=== PATIENT | female | born 1985 | race Caucasian/White ===

== ENCOUNTER 2016-09-25 21:57 | Emergency (ER) | payer MEDICAID ==
[~2016-09-25] VITALS: Ht 154.9 cm; Wt 93.0 kg
[2016-09-25] MEDS ORDERED: NACL 0.9% 1,000 ML IV SCH (22:03)
[2016-09-25] MEDS ORDERED: FAMOTIDINE 20 MG/2 ML VIAL IVP ONE (22:05)
[2016-09-25 22:07] VITALS: BP 110/80
--- NOTE | 2016-09-25 22:07 | NUR ---
Dr. Angel evaluating patient at triage.
--- NOTE | 2016-09-25 22:21 | NUR ---
PT TAKEN TO BED 4
--- NOTE | 2016-09-25 22:25 | NUR ---
30Y F BIB FAMILY, C/O AB PAIN AND CRAMPING WITH NO VAG BLEEDING SINCE 1600 TODAY. PT IS 18 WEEKS . PT STATES SHE HAD COFFEE TODAY AT [facility] WHILE VISITING HER DAD. CO STATES NO MED HX DENIES N/V/D; SKIN IS PINK/WARM/DRY; AAOX4 WITH EVEN AND STEADY GAIT; LUNGS CLEAR BL; HR EVEN AND REGULAR; PT DENIES ANY FEVER, CP, SOB, OR COUGH AT THIS TIME; PATIENT STATES PAIN OF 6/10 AT THIS TIME; VSS; PATIENT POSITIONED FOR COMFORT; HOB ELEVATED; BEDRAILS UP X2; BED DOWN. ER MD MADE AWARE OF PT STATUS.
[2016-09-25 23:30] VITALS: BP 108/77
[2016-12-25] MEDS ORDERED: PRENATAL LOW IR1 TA1 PO (15:21)
[2017-01-17] MEDS ORDERED: PRENATAL LOW IR1 TA1 PO (01:30)
== END 2016-09-25 23:30 | disposition home or self-care (01) ==
LOC: MED 22:03
PROC: 3E033GC Introduction of Other Therapeutic Substance into Peripheral Vein, Percutaneous Approach (ICD-10-PCS; principal; 2016-09-25)
DX: O26.892 Other specified pregnancy related conditions, second trimester (principal); K21.9 Gastro-esophageal reflux disease without esophagitis; Z3A.16 16 weeks gestation of pregnancy
CPT/HCPCS: 36415; 80053; 81001; 81025; 82150; 83690; 84702; 85025; 96361; 96374; 99284; J3490; J7030

== ENCOUNTER 2016-12-24 20:43 | Observation (INO) | payer MEDICAID ==
[~2016-12-24] VITALS: Ht 152.4 cm; Wt 97.5 kg
[2016-12-24 21:33] VITALS: BP 116/63
[2016-12-24 22:18] LABS: PARTIAL THROMBOPLASTIN TIME 26.5 secs (22-35.6); PROTHROMBIN TIME 9.9 secs (10.8-13.4)
[2016-12-24 22:20] LABS: BASOPHILS # (AUTO) 0.1 K/uL (0.00-0.22); EOSINOPHILS # (AUTO) 0.2 K/uL (0-0.4); EOSINOPHILS % (AUTO) 1.7 % (0.0-4.0); HEMATOCRIT 36.3 % (36-48); HEMOGLOBIN 12.3 g/dL (12.0-16.0); LYMPHOCYTES % (AUTO) 19.4 % (20.5-51.1); MEAN CORPUSCULAR HEMOGLOBIN 29 pg (27-31); MEAN CORPUSCULAR HGB CONC 34 g/dL (33-37); MEAN CORPUSCULAR VOLUME 86 fL (80-94); MONOCYTES # (AUTO) 0.5 K/uL (0.8-1.0); MONOCYTES % (AUTO) 4.9 % (1.7-9.3); NEUTROPHILS # (AUTO) 7.7 K/uL (1.8-7.7); PLATELET COUNT (AUTO) 181 K/uL (140-450); RED BLOOD CELL COUNT(AUTO) 4.21 MIL/uL (4.20-5.40); RED CELL DISTRIBUTION WIDTH 12.5 % (11.6-13.7); WHITE BLOOD COUNT (AUTO) 10.5 K/uL (4.8-10.8)
[2016-12-25] MEDS ORDERED: PREN-380 PO (15:21)
== END 2016-12-25 16:07 | disposition home or self-care (01) ==
LOC: MLD 20:43
PROVIDERS: ADMIT Obstetrics & Gynecology; ATTEND Obstetrics & Gynecology
DX: O26.899 Other specified pregnancy related conditions, unspecified trimester (principal); R10.2 Pelvic and perineal pain; Z3A.00 Weeks of gestation of pregnancy not specified
CPT/HCPCS: 36415; 59025; 76815; 85025; 85379; 85610; 85730; 86850; 86886; 86900; 86901; G0378; J2790; Q0092

== ENCOUNTER 2017-01-16 22:37 | Observation (INO) | payer MEDICAID ==
[~2017-01-16] VITALS: Ht 152.4 cm; Wt 98.4 kg
[2017-01-17] VITALS: BP 117/55
[2017-01-17] MEDS ORDERED: PREN-380 PO (01:30)
[2017-01-17] MEDS ORDERED: NALBUPHINE 10 MG/ML AMP IVP PRN (01:30)
[2017-01-17] MEDS ORDERED: LACTATED RINGERS 1,000 ML IV SCH (01:30)
[2017-01-17] MEDS ORDERED: TERBUTALINE 1 MG/ML VIAL SUBQ ONE (01:51)
[2017-01-17] MEDS: TERBUTALINE 1 MG/ML VIAL SUBQ SCH ×2 (04:49→04:50)
--- NOTE | 2017-01-17 09:04 | NUR ---
PATIENT HAS BEEN SCREENED AND CATEGORIZED LOW NUTRITION RISK. PATIENT WILL BE SEEN WITHIN 7 DAYS OF ADMISSION. 01/23/[address]
== END 2017-01-17 14:55 | disposition home or self-care (01) ==
LOC: MFCC 22:37 → MLD 22:37
PROVIDERS: ADMIT Obstetrics & Gynecology; ATTEND Obstetrics & Gynecology
DX: O62.9 Abnormality of forces of labor, unspecified (principal); Z3A.00 Weeks of gestation of pregnancy not specified
CPT/HCPCS: 76815; 96360; 96361; 96372; G0378; J3105; Q0092

== ENCOUNTER 2017-02-08 00:15 | Observation (INO) | payer MEDICAID ==
[~2017-02-08] VITALS: Ht 152.4 cm; Wt 99.8 kg
[~2017-02-08 00:15] MED LIST: PREN-380 PO
[2017-02-08] MEDS ORDERED: LACTATED RINGERS 1,000 ML IV SCH (01:20)
[2017-02-08] MEDS: TERBUTALINE 1 MG/ML VIAL SUBQ SCH ×2 (01:37→02:23)
[2017-02-08] MEDS ORDERED: TERBUTALINE 1 MG/ML VIAL SUBQ ONE (01:38)
[2017-02-08] MEDS ORDERED: TERBUTALINE 2.5 MG TAB PO SCH (04:00)
[2017-02-08 06:13] LABS: BASOPHILS % (AUTO) 0.4 % (0.0-2.0); EOSINOPHILS # (AUTO) 0.1 K/uL (0-0.4); EOSINOPHILS % (AUTO) 0.9 % (0.0-4.0); HEMATOCRIT 35.5 % (36-48); MEAN CORPUSCULAR HEMOGLOBIN 29 pg (27-31); MEAN CORPUSCULAR HGB CONC 34 g/dL (33-37); MEAN CORPUSCULAR VOLUME 86 fL (80-94); MONOCYTES # (AUTO) 0.6 K/uL (0.8-1.0); MONOCYTES % (AUTO) 5.7 % (1.7-9.3); NEUTROPHILS # (AUTO) 7.8 K/uL (1.8-7.7); PLATELET COUNT (AUTO) 175 K/uL (140-450); RED BLOOD CELL COUNT(AUTO) 4.13 MIL/uL (4.20-5.40); RED CELL DISTRIBUTION WIDTH 12.9 % (11.6-13.7); WHITE BLOOD COUNT (AUTO) 10.5 K/uL (4.8-10.8)
[2017-02-08 07:18] LABS: D-DIMER 1540 ng/ml (0-400)
[2017-02-08 07:34] LABS: INR 0.9 (0.8-1.2); PARTIAL THROMBOPLASTIN TIME 25.3 secs (22-35.6); PROTHROMBIN TIME 9.6 secs (10.8-13.4)
[2017-02-08 07:41] LABS: FIBRINOGEN > 475 mg/dL (200-400)
--- NOTE | 2017-02-08 09:18 | NUR ---
PATIENT HAS BEEN SCREENED AND CATEGORIZED LOW NUTRITION RISK. PATIENT WILL BE SEEN WITHIN 7 DAYS OF ADMISSION. 02/14/[address]
== END 2017-02-08 16:15 | disposition home or self-care (01) ==
LOC: MLD 00:15
PROVIDERS: ADMIT Obstetrics & Gynecology; ATTEND Obstetrics & Gynecology
DX: O62.9 Abnormality of forces of labor, unspecified (principal); Z3A.00 Weeks of gestation of pregnancy not specified
CPT/HCPCS: 36415; 76815; 85025; 85379; 85384; 85610; 85730; G0378; J3105; J7120; Q0092; 51702; 96372

== ENCOUNTER 2017-02-10 20:44 | Observation (INO) | payer MEDICAID ==
[~2017-02-10] VITALS: Ht 152.4 cm; Wt 99.8 kg
[2017-02-10] MEDS: LACTATED RINGERS 1,000 ML IV SCH (04:01)
[2017-02-11 03:30] VITALS: BP 127/60
--- NOTE | 2017-02-11 06:49 | NUR ---
PATIENT HAS BEEN SCREENED AND CATEGORIZED LOW NUTRITION RISK. PATIENT WILL BE SEEN WITHIN 7 DAYS OF ADMISSION. 02/17/16 JAMEE HAYDEN MS, RDN
[2017-02-11] MEDS: LACTATED RINGERS 1,000 ML IV SCH (08:34)
== END 2017-02-11 10:45 | disposition home or self-care (01) ==
LOC: MLD 20:44
PROVIDERS: ADMIT Obstetrics & Gynecology; ATTEND Obstetrics & Gynecology
DX: Z34.93 Encounter for supervision of normal pregnancy, unspecified, third trimester (principal); Z3A.38 38 weeks gestation of pregnancy
CPT/HCPCS: 76815; 96360; 96361; G0378; J7120; Q0092

== ENCOUNTER 2017-02-25 07:45 | Inpatient (IN) | payer MEDICAID ==
[~2017-02-25] VITALS: Ht 152.4 cm; Wt 95.3 kg
[2017-02-25 10:00] VITALS: BP 125/63
[2017-02-25 11:22] LABS: BASOPHILS # (AUTO) 0.1 K/uL (0.00-0.22); BASOPHILS % (AUTO) 1.5 % (0.0-2.0); EOSINOPHILS # (AUTO) 0.2 K/uL (0-0.4); EOSINOPHILS % (AUTO) 1.8 % (0.0-4.0); HEMATOCRIT 39.8 % (36-48); HEMOGLOBIN 13.3 g/dL (12.0-16.0); LYMPHOCYTES # (AUTO) 2.3 K/uL (2.5-16.5); LYMPHOCYTES % (AUTO) 26.5 % (20.5-51.1); MEAN CORPUSCULAR HEMOGLOBIN 29 pg (27-31); MEAN CORPUSCULAR HGB CONC 34 g/dL (33-37); MEAN CORPUSCULAR VOLUME 86 fL (80-94); MONOCYTES # (AUTO) 0.6 K/uL (0.8-1.0); MONOCYTES % (AUTO) 6.4 % (1.7-9.3); NEUTROPHILS # (AUTO) 5.6 K/uL (1.8-7.7); NEUTROPHILS % (AUTO) 63.8 % (42.2-75.2); PLATELET COUNT (AUTO) 165 K/uL (140-450); RED BLOOD CELL COUNT(AUTO) 4.65 MIL/uL (4.20-5.40); RED CELL DISTRIBUTION WIDTH 13.1 % (11.6-13.7); WHITE BLOOD COUNT (AUTO) 8.8 K/uL (4.8-10.8)
[2017-02-25 11:25] LABS: ANION GAP 15.1 (8-16); CARBON DIOXIDE 20.5 mmol/L (21-32); CREATININE 0.6 mg/dL (0.6-1.3); POTASSIUM 3.6 mmol/L (3.5-5.1)
[2017-02-25 11:28] LABS: INR 0.9 (0.8-1.2); PARTIAL THROMBOPLASTIN TIME 27.4 secs (22-35.6); PROTHROMBIN TIME 9.5 secs (10.8-13.4)
[2017-02-25 11:31] LABS: ALBUMIN 2.5 g/dL (3.4-5.0); TOTAL BILIRUBIN 0.3 mg/dL (0.0-1.0); TOTAL PROTEIN, SERUM 6.8 g/dL (6.4-8.2)
[2017-02-25 11:36] LABS: APPEARANCE,URINE CLEAR (CLEAR); BILIRUBIN,URINE NEGATIVE (NEGATIVE); BLOOD, URINE NEGATIVE (NEGATIVE); COLOR,URINE YELLOW (YELLOW); LEUKOCYTE ESTERASE ,URINE NEGATIVE (NEGATIVE); NITRITE, URINE NEGATIVE (NEGATIVE); PH,URINE 5.5 (5.0-9.0); PROTEIN,URINE NEGATIVE (NEGATIVE); UGLUCOSE NEGATIVE (NEGATIVE); UROBILINOGEN,URINE 0.2 EU/dL (0.2 - 1)
[2017-02-25 11:58] LABS: BACTERIA,URINE OCCASSIONAL /HPF (None Seen); MUCUS,URINE 1+ /LPF (None Seen); RBC,URINE NONE SEEN /HPF (0-5); SQUAMOUS EPITHELIAL CELL,UR 0-3 (FEW) /LPF (0-3 (FEW)); WBC,URINE 0-5 (RARE) /HPF (0-5)
[2017-02-25] MEDS ORDERED: LACTATED RINGERS 1,000 ML IV SCH (12:13)
[2017-02-25] MEDS ORDERED: CITRIC ACID/SODIUM CITRATE 30 ML UDC PO SCH (13:00)
[2017-02-25] MEDS ORDERED: CITRIC ACID/SODIUM CITRATE 30 ML UDC ONE (13:21)
[2017-02-25] MEDS ORDERED: diphenhydrAMINE 50 MG/ML VIAL IVP ONE (13:45)
[2017-02-25] MEDS ORDERED: BUPIVACAINE-MPF 0.75% 10 ML VIAL INJ ONE (13:45)
[2017-02-25] MEDS ORDERED: ePHEDrine 50 MG/ML VIAL IV ONE (13:45)
[2017-02-25] MEDS ORDERED: ONDANSETRON 4 MG/2 ML VIAL IVP ONE (13:45)
[2017-02-25] MEDS ORDERED: fentaNYL 0.05 MG/ML VIAL ONE (14:03)
[2017-02-25] MEDS ORDERED: MIDAZOLAM 2 MG/2 ML VIAL ONE (14:03)
[2017-02-25] MEDS ORDERED: KETAMINE 500 MG/5 ML VIAL ONE (14:03)
[2017-02-25] MEDS ORDERED: MORPHINE PRES FREE 10 MG/10 ML AMP IV ONE (14:04)
[2017-02-25] MEDS ORDERED: ceFAZolin 1,000 MG VIAL IVP ONE (14:10)
[2017-02-25] MEDS ORDERED: ONDANSETRON 4 MG/2 ML VIAL IVP PRN (14:35)
[2017-02-25] MEDS ORDERED: diphenhydrAMINE 50 MG/ML VIAL IVP PRN (14:35)
[2017-02-25] MEDS ORDERED: KETOROLAC 30 MG/ML VIAL IVP PRN ×2 (14:35→16:45)
[2017-02-25] MEDS ORDERED: diphenhydrAMINE 50 MG/ML VIAL ONE (15:31)
[2017-02-25] MEDS ORDERED: OXYTOCIN 20 UNITS/LR PREMIX 1,000 ML IV ONE (15:31)
[2017-02-25] MEDS ORDERED: HYDROmorphone 1 MG/ML AMP IVP PRN (16:45)
[2017-02-25] MEDS ORDERED: MEASLES, MUMPS, AND RUBELLA 1 VIAL SQVAC PRN (16:45)
[2017-02-26] MEDS: OXYTOCIN 20 UNITS/LR PREMIX 1,000 ML IV SCH ×2 (01:12→10:18)
[2017-02-26 06:34] LABS: BASOPHILS % (AUTO) 0.2 % (0.0-2.0); EOSINOPHILS # (AUTO) 0.2 K/uL (0-0.4); EOSINOPHILS % (AUTO) 1.6 % (0.0-4.0); HEMATOCRIT 34.3 % (36-48); HEMOGLOBIN 11.4 g/dL (12.0-16.0); LYMPHOCYTES # (AUTO) 1.4 K/uL (2.5-16.5); LYMPHOCYTES % (AUTO) 11.3 % (20.5-51.1); MEAN CORPUSCULAR HEMOGLOBIN 29 pg (27-31); MEAN CORPUSCULAR HGB CONC 33 g/dL (33-37); MEAN CORPUSCULAR VOLUME 86 fL (80-94); MONOCYTES # (AUTO) 0.6 K/uL (0.8-1.0); MONOCYTES % (AUTO) 4.6 % (1.7-9.3); NEUTROPHILS # (AUTO) 9.8 K/uL (1.8-7.7); NEUTROPHILS % (AUTO) 82.3 % (42.2-75.2); PLATELET COUNT (AUTO) 146 K/uL (140-450); RED BLOOD CELL COUNT(AUTO) 3.98 MIL/uL (4.20-5.40); RED CELL DISTRIBUTION WIDTH 13.2 % (11.6-13.7)
--- NOTE | 2017-02-26 09:49 | NUR ---
PATIENT HAS BEEN SCREENED AND CATEGORIZED LOW NUTRITION RISK. PATIENT WILL BE SEEN WITHIN 7 DAYS OF ADMISSION. 03/03/[address]
[2017-02-26] MEDS ORDERED: oxyCODONE/APAP 5/325 MG 1 TAB TAB PO PRN (17:20)
[2017-02-26] MEDS: ACETAMINOPHEN 325 MG TAB PO PRN (17:40)
[2017-02-26] MEDS ORDERED: NALBUPHINE 10 MG/ML AMP IM PRN (18:20)
[2017-02-27] MEDS: ACETAMINOPHEN 325 MG TAB PO PRN (02:14)
[2017-02-27] MEDS ORDERED: BISACODYL 5 MG TABEC PO PRN (08:00)
[2017-02-27] MEDS ORDERED: SODIUM PHOSPHATE 118 ML ENEM RC PRN (08:00)
[2017-02-27] MEDS ORDERED: DOCUSATE SODIUM 100 MG GELCAP PO PRN (08:00)
[2017-02-27] MEDS: oxyCODONE/APAP 5/325 MG 1 TAB TAB PO PRN ×2 (08:26→12:19)
[2017-02-27] MEDS: SIMETHICONE 80 MG TAB.CHEW PO PRN (12:18)
[2017-02-27] MEDS: IBUPROFEN 800 MG TAB PO PRN ×2 (15:52→23:39)
[2017-02-28] MEDS: SIMETHICONE 80 MG TAB.CHEW PO PRN ×3 (00:50→20:20)
[2017-02-28] MEDS: IBUPROFEN 800 MG TAB PO PRN ×3 (05:44→20:20)
[2017-03-01] MEDS: IBUPROFEN 800 MG TAB PO PRN ×2 (03:12→09:34)
== END 2017-03-01 16:45 | disposition home or self-care (01) | DRG 540 ==
LOC: MLD 07:45 → OBSVTOIN 09:30 → MFCC 14:30
PROVIDERS: ADMIT Obstetrics & Gynecology; ATTEND Obstetrics & Gynecology
PROC: 10D00Z1 Extraction of Products of Conception, Low, Open Approach (ICD-10-PCS; principal; 2017-02-28)
DX: O41.03X0 Oligohydramnios, third trimester, not applicable or unspecified (principal); Z68.41 Body mass index [BMI] 40.0-44.9, adult; O99.214 Obesity complicating childbirth; E66.01 Morbid (severe) obesity due to excess calories; N73.6 Female pelvic peritoneal adhesions (postinfective); O99.89 Other specified diseases and conditions complicating pregnancy, childbirth and the puerperium; O34.211 Maternal care for low transverse scar from previous cesarean delivery; Z3A.39 39 weeks gestation of pregnancy; Z37.0 Single live birth; Z23 Encounter for immunization
CPT/HCPCS: G0378 ×2; 36415; 51702; 76815; 80053; 81001; 85025; 85610; 85730; 86592; 86886; 86900; 86901; 87081; 87086; 90715; J0690; J1200; J1885; J2250; J2270; J2300; J2405; J2590; J3010; J3490; J7060; J7120; Q0092